=== PATIENT | female | born 2000 ===

== ENCOUNTER 2021-10-04 09:25 | Outpatient (CLI) | payer MEDICAID, SELFPAY ==
[2021-10-06 13:38] LABS: TB Interpretation Negative (Negative)
== END 2021-10-04 09:26 | disposition home or self-care (01) ==
LOC: LBO 09:27
PROVIDERS: Visit Provider Nurse Practitioner Family
DX: Z11.1 Encounter for screening for respiratory tuberculosis (principal)
CPT/HCPCS: 36415; 86480